=== PATIENT | female | born 1965 | race Caucasian/White ===

== ENCOUNTER 2018-10-06 08:37 | Emergency (ER) | payer OTHER ==
[2018-10-06 08:49] VITALS: BP 166/75; PULSE 51; TEMP 97.6; BMI 17.3
[2018-10-06] MEDS ORDERED: SODIUM CHLORIDE 1,000 ML IV STA (08:50)
[2018-10-06] MEDS ORDERED: ONDANSETRON 4 MG/2 ML VIAL IVPUSH ONE (08:50)
[2018-10-06] MEDS ORDERED: PANTOPRAZOLE SODIUM 40 MG in SODIUM CHLORIDE 100 ML IVPB ONE (08:55)
[2018-10-06] MEDS ORDERED: KETOROLAC TROMETHAMINE 30 MG/1 ML VIAL IVPUSH ONE (08:55)
[2018-10-06] MEDS ORDERED: ONDANSETRON 4 MG/2 ML VIAL ONE (09:05)
[2018-10-06] MEDS ORDERED: KETOROLAC TROMETHAMINE 30 MG/1 ML VIAL ONE (09:05)
[2018-10-06] MEDS ORDERED: PANTOPRAZOLE SODIUM 40 MG/100 ML BAG IVPB ONE (09:05)
[2018-10-06 09:32] LABS: BASO % 0.7 % (0-2.0); EOS % 0.7 % (0-4.5); HEMATOCRIT 37.2 % (32.4-45.2); LYMPH % 19.4 % (8-40); MCH 31.3 pg (25.7-33.7); MCHC 35.1 g/dl (32.0-36.0); MEAN CELL VOLUME 89.3 fl (80-96); MEAN PLT VOLUME 7.7 fl (7.5-11.1); MONO % 7.2 % (3.8-10.2); PLATELET COUNT 283 K/MM3 (134-434); RBC 4.17 M/mm3 (3.60-5.2); RDW 12.2 % (11.6-15.6); WHITE BLOOD COUNT 6.5 K/mm3 (4.0-10.0)
--- NOTE | 2018-10-06 09:54 | PDOC ---
History of Present Illness - General Chief Complaint: Nausea/Vomiting Stated Complaint: VOMITING Time Seen by Provider: 10/06/18 08:49 History Source: Patient Exam Limitations: No Limitations - History of Present Illness Travel History: No Initial Comments: 10/06/18 09:22 53-year-old female presents to ED with complaints of nausea and vomiting after eating pizza after work this morning. Patient also complaining of mild epigastric burning without diarrhea, fever or chills. Patient also states during episode of vomiting felt dizzy but did not syncopize. Patient states history of thyroid or disorder, hypertension dyslipidemia Timing/Duration: reports: constant Quality: reports: mild, burning Abdominal Pain Onset Location: reports: epigastric Pain Radiation: reports: no radiation Activities at Onset: reports: none Aggravating Factors: improves with: None Alleviating Factors: improves with: None Past History - Travel Traveled outside of the country in the last 30 days: No Close contact w/someone who was outside of country & ill: No - Past Medical History Allergies/Adverse Reactions: Allergies Allergy/AdvReac Type Severity Reaction Status Date / Time No Known Allergies Allergy Verified 10/06/18 08:44 Home Medications: Ambulatory Orders Atorvastatin Ca [Lipitor (Restricted To Cardiology)] 20 mg PO HS 11/30/11 Acetaminophen [Tylenol] 325 mg PO ASDIR PRN 04/02/15 Amlodipine Besylate [Norvasc -] 2.5 mg PO DAILY 04/02/15 Ibuprofen [Advil -] 200 mg PO ASDIR PRN 04/02/15 Levofloxacin [Levaquin] 750 mg PO DAILY #5 tablet 04/02/15 Loratadine [Claritin -] 10 mg PO DAILY 04/02/15 Ondansetron HCl [Zofran] 4 mg PO TID PRN #12 tablet 10/06/18 COPD: No HTN: Yes Hypercholesterolemia: Yes - Immunization History Td Vaccination: No TDAP Vaccination: No Immunization Up to Date: Yes - Suicide/Smoking/Psychosocial Hx Smoking Status: No Smoking History: Never smoked Have you smoked in the past 12 months: No Number of Cigarettes Smoked Daily: 0 Information on smoking cessation initiated: No Hx Alcohol Use: No Drug/Substance Use Hx: No Substance Use Type: None Patient Lives Alone: No Lives with/in: spouse/SO Review of Systems - Review of Systems Able to Perform ROS?: Yes Constitutional: No: Symptoms Reported HEENTM: No: Symptoms Reported Respiratory: No: Symptoms reported Cardiac (ROS): Yes: Lightheadedness ABD/GI: Yes: Nausea, Vomiting, Abdominal cramping : No: Symptoms Reported Musculoskeletal: No: Symptoms Reported Integumentary: No: Symptoms Reported Neurological: No: Symptoms reported *Physical Exam - Vital Signs Last Vital Signs Temp Pulse Resp BP Pulse Ox 97.6 F 51 L 16 166/75 100 10/06/18 08:45 10/06/18 08:45 10/06/18 08:45 10/06/18 08:45 10/06/18 08:45 - Physical Exam General Appearance: Yes: Nourished, Appropriately Dressed. No: Apparent Distress HEENT: negative: Pale Conjunctivae Neck: positive: Normal Thyroid Respiratory/Chest: positive: Lungs Clear, Normal Breath Sounds. negative: Respiratory Distress, Accessory Muscle Use Cardiovascular: positive: Regular Rhythm, Regular Rate. negative: Murmur Gastrointestinal/Abdominal: positive: Soft, Tenderness (epigastric) Musculoskeletal: negative: CVA Tenderness Extremity: positive: Normal Inspection Integumentary: positive: Normal Color, Warm, Moist Neurologic: positive: Motor Strength 5/5 (ambulatory) Heart Score/ECG Review - ECG Intrepretation Rhythm: Regular Rhythm (nsb at 52. no st elevation, intervals are reg) ED Treatment Course - LABORATORY CBC & Chemistry Diagram: 10/06/18 09:24 10/06/18 09:24 - ADDITIONAL ORDERS Additional order review: 10/06/18 09:24 RBC 4.17 MCV 89.3 MCHC 35.1 RDW 12.2 MPV 7.7 Neutrophils % 72.0 Lymphocytes % 19.4 D Monocytes % 7.2 Eosinophils % 0.7 D Basophils % 0.7 D - Medications Given in the ED: ED Medications Discontinued Medications Generic Name Dose Route Start Last Admin Trade Name Freq PRN Reason Stop Dose Admin Pantoprazole Sodium 40 mg/ 100 mls @ 200 mls/hr 10/06/18 08:55 10/06/18 09:15 Sodium Chloride IVPB 10/06/18 09:24 200 mls/hr ONCE ONE Administration Ketorolac Tromethamine 30 mg 10/06/18 08:55 10/06/18 09:15 Toradol Injection - IVPUSH 10/06/18 08:56 30 mg ONCE ONE Administration Ondansetron HCl 4 mg 10/06/18 08:50 10/06/18 09:15 Zofran Injection IVPUSH 10/06/18 08:51 4 mg ONCE ONE Administration Medical Decision Making - Medical Decision Making 10/06/18 09:19 CC: Nausea and vomiting after eating pizza this a.m. accompanied one episode of lightheadedness while vomiting patient denies fever, chills, diarrhea, recent travel recent illness. Patient does have history of thyroid disorder hypertension and dyslipidemia exam: Vitals stable. Noted epigastric tenderness plan: IV fluids, urine, labs, ekg and medications 10/06/18 10:21 Laboratory Tests 10/06/18 10/06/18 09:24 09:24 WBC 6.5 Hgb 13.0 Hct 37.2 Absolute Neuts (auto) 4.7 Sodium 144 Potassium 3.6 Chloride 110 H BUN 16.2 Calcium 9.7 AST 20 ALT 31 TSH 0.97 10/06/18 11:08 pt states feeling better. Will discharge home with zofran and bland diet instructions *DC/Admit/Observation/Transfer Diagnosis at time of Disposition: Nausea and vomiting - Discharge Dispostion Disposition: HOME Condition at time of disposition: Improved - Prescriptions Prescriptions: Ondansetron HCl [Zofran] 4 mg PO TID PRN #12 tablet PRN Reason: Nausea And/Or Vomiting - Referrals - Patient Instructions Printed Discharge Instructions: DI for Vomiting -- Adult, [place] Diet Additional Instructions: Please take zofran as needed for Nausea. Eat bland food x 48 hours and then may advance as tolerated - Post Discharge Activity
[2018-10-06 10:14] LABS: ALBUMIN 4.3 g/dl (3.4-5.0); BILIRUBIN,TOTAL 0.7 mg/dL (0.2-1); BLOOD UREA NITROGEN 16.2 mg/dL (7-18); CALCIUM 9.7 mg/dL (8.5-10.1); CREATININE 0.8 mg/dL (0.55-1.3); MAGNESIUM 2.4 mg/dL (1.8-2.4); POTASSIUM 3.6 mmol/L (3.5-5.1); TOT PROT 7.3 g/dl (6.4-8.2)
[2018-10-06 11:33] LABS: PH,URINE >= 9.0 (5.0-8.0); URINE APPEARANCE TURBID; URINE BILIRUBIN NEGATIVE (NEGATIVE); URINE COLOR YELLOW; URINE GLUCOSE (UA) NEGATIVE (NEGATIVE); URINE KETONE NEGATIVE (NEGATIVE); URINE LEUK ESTERASE NEGATIVE (NEGATIVE); URINE NITRITE NEGATIVE (NEGATIVE); URINE PROTEIN NEGATIVE (NEGATIVE); URINE UROBILINOGEN 0.2 mg/dL (0.2-1.0)
== END 2018-10-06 12:15 | disposition home or self-care (01) ==
LOC: JER 08:37
PROC: 3E033GC Introduction of Other Therapeutic Substance into Peripheral Vein, Percutaneous Approach (ICD-10-PCS; principal; 2018-10-06)
PROC: 3E033GC Introduction of Other Therapeutic Substance into Peripheral Vein, Percutaneous Approach (ICD-10-PCS; 2018-10-06)
PROC: 3E0333Z Introduction of Anti-inflammatory into Peripheral Vein, Percutaneous Approach (ICD-10-PCS; 2018-10-06)
DX: R11.2 Nausea with vomiting, unspecified (principal); I10 Essential (primary) hypertension; E78.5 Hyperlipidemia, unspecified; E07.9 Disorder of thyroid, unspecified
CPT/HCPCS: 36415; 80053; 81003; 83690; 83735; 84443; 85025; 96365; 96375; 99281-25; J7030